=== PATIENT | female | born 1950 | race Caucasian/White ===

== ENCOUNTER 2019-05-24 07:57 | Emergency (ER) | payer MEDICARE ==
[~2019-05-24] VITALS: Ht 154.9 cm; Wt 86.2 kg
[2019-05-24] MEDS ORDERED: CALCIUM 600 +1 EAC1 PO (08:10)
[2019-05-24] MEDS ORDERED: VITAMIN B122500 MCG PO (08:10)
[2019-05-24] MEDS ORDERED: CENTRUM SILVER1 EAC4 PO (08:11)
[2019-05-24] MEDS ORDERED: PRELONE15 MG/5 ML PO (08:44)
[2019-05-24] MEDS ORDERED: VALTREX1000 MG PO (08:44)
[2019-05-24 08:55] VITALS: BP 130/78
== END 2019-05-24 08:57 | disposition home or self-care (01) ==
LOC: M.ERS 07:57
DX: G51.0 Bell's palsy (principal); Z91.013 Allergy to seafood